=== PATIENT | male | born 1975 | race African-American/Black ===

== ENCOUNTER 2023-04-14 03:54 | Emergency (ER) | payer BC, MEDICAID ==
[~2023-04-14] VITALS: Ht 172.7 cm; Wt 82.0 kg
[~2023-04-14 03:54] MED LIST: CEPH500T PO; SULF1TAB48 PO; TRAM50TA3 PO
[2023-04-14 04:05] VITALS: O2SAT 98
[2023-04-14] MEDS ORDERED: KETOROLAC 30MG/ML VIAL IV STA (05:13)
[2023-04-14] MEDS ORDERED: SODIUM CHLORIDE 0.9% 1,000 ML IV ONE (05:15)
[2023-04-14 05:35] LABS: BASOPHILS % 0.6 % (0.0-2.0); EOSINOPHILS % 1.3 % (0.0-5.0); HEMOGLOBIN. 13.8 g/dL (14.0-18.0); LYMPHOCYTES % 52.3 % (20.0-50.0); MEAN CORPUSCULAR HEMOGLOBIN 31.1 pg (28.0-32.0); MEAN CORPUSCULAR HGB CONC 34.4 g/dL (31.0-37.0); MEAN CORPUSCULAR VOLUME 90.5 fL (80.0-94.0); MEAN PLATELET VOLUME 8.5 fl (7.4-10.4); MONOCYTES % 4.2 % (2.0-8.0); NEUTROPHILS % 41.6 % (40.0-76.0); PLATELET 241 x1000/uL (130-400); RED BLOOD CELL COUNT 4.42 mill/uL (4.7-6.1); RED CELL DISTRIBUTION WIDTH 13.1 % (11.6-14.6); WHITE BLOOD COUNT 9.2 x1000/uL (4.5-11.0)
[2023-04-14 05:45] LABS: CHLORIDE 110 mEq/L (98-107); INDEX HEMOLYSI 1 (1-3); INDEX ICTERIC 1 (1-4); INDEX LIPEMIC 1 (1-3); SODIUM 140 mEq/L (136-145)
[2023-04-14 05:49] LABS: PROTHROMBIN TIME 10.6 sec (9.6-11.0)
[2023-04-14 05:52] LABS: ALANINE AMINOTRANSFERASE 27 IU/L (13-61); ALBUMIN 3.4 g/dL (3.4-5.0); ASPARTATE AMINOTRANSFERASE 23 IU/L (15-37); BILIRUBIN TOTAL 0.5 mg/dL (0.1-1.0); CALCIUM 8.6 mg/dL (8.5-10.1); CARBON DIOXIDE 21 mEq/L (21-32); CREATININE 1.2 mg/dL (0.6-1.3); GLUCOSE 169 mg/dL (70-105); PROTEIN TOTAL 7.2 g/dL (6.0-8.3); UREA NITROGEN BLOOD 12 mg/dL (7-21)
[2023-04-14 05:57] LABS: POTASSIUM 2.6 mEq/L (3.5-5.1)
[2023-04-14] MEDS ORDERED: KCL 20MEQ/100ML PREMIX 100 ML IV ONE (06:45)
[2023-04-14] MEDS ORDERED: POTASSIUM CHLORIDE 20MEQ TABLET SR PO ONE (06:45)
[2023-04-14 06:53] LABS: CLARITY URINE CLEAR (CLEAR); COLOR URINE YELLOW (YELLOW); GLUCOSE URINE 1+ (NEGATIVE); KETONES URINE TRACE (NEGATIVE); LEUKOCYTE ESTERASE URINE NEGATIVE (NEGATIVE); NITRITE URINE NEGATIVE (NEGATIVE); OCCULT BLOOD URINE TRACE (NEGATIVE); PROTEIN URINE NEGATIVE (NEGATIVE); SPECIFIC GRAVITY URINE 1.015 (1.005-1.030)
[2023-04-14 07:12] LABS: SQUAMOUS EPITHELIAL CELL URINE NONE SEEN /lpf (RARE/1+)
[2023-04-14 07:16] LABS: BACTERIA URINE NONE SEEN
[2023-04-14] MEDS ORDERED: NAPR-681 MT (07:57)
[2023-04-14] MEDS ORDERED: POTA10CA43 MT (07:57)
[2023-04-14 08:36] VITALS: BP 121/85; PULSE 74; RESP 16; TEMP 98.3
== END 2023-04-14 08:38 | disposition home or self-care (01) ==
LOC: ER 03:54
DX: E87.6 Hypokalemia (principal); N20.0 Calculus of kidney
CPT/HCPCS: 80053; 81003; 83690; 85025; 85610; 36415; 74176; 96361; 96365; 96375; 99285; J1885; J3480; J7030; Z7610 ×3